=== PATIENT | male | born 1980 | race Caucasian/White ===

== ENCOUNTER 2025-01-30 14:07 | Emergency (ER) | payer SELFPAY ==
--- OUTSIDE RECORDS SUMMARY | 2025-01-30 14:10 | XMS_ITS | Clinical Summary ---
Author Organization [facility] Address [address] [place] [address] Phone Care Team Providers Care Press Cutter Name Role Phone Provider, None Primary Care Provider Unavailabl e Allergies No known active allergies Medications ondansetron (ZOFRAN) 4 MG Tablet Take 1 Tab by mouth every 8 hours as needed for Nausea - 1st line. 10 Tab 0 Active Additional Information Patient not taking.Reported on 03/27/2024 Active Problems No known active problems Immunizations Immunization Administration Dates Next Due TDAP Vaccine 02/15/2017 Social History Tobacco Use Types Packs/Day Years Used Date Smoking Tobacco: Every Day Cigarettes Smokeless Tobacco: Never Tobacco Cessation:Ready to Q uit: Not Asked; Counseling Given: Not Answered Alcohol Use Standard Drinks/Week Comments Yes 0 (1 standard drink = 0.6 oz pur e alcohol) 5 beers a night Sex and Gender Information Value Date Recorded Sex Assigned at Not on file Legal Sex Male 11:36 AM [employer] Gender Identity Not on file Sexual Orientation Not on file Last Filed Vital Signs Vital Sign Reading Time Taken Comments Blood Pressure 120/78 03/27/2024 11:40 AM CDT Pulse 97 03/27/2024 11:40 AM CDT Temperature 36.6 C (97.9 F) 03/27/2024 11:40 AM CDT Respiratory Rate 14 03/27/2024 11:40 AM CDT Oxygen Saturation 98% 03/27/2024 11:40 AM CDT Inhaled Oxygen Concentration - - Weight 77.1 kg (170 lb) 12/10/2021 10:17 PM CDT Height 175.3 cm (5' 9) 12/10/2021 10:17 PM CDT Body Mass Index 25.1 12/10/2021 10:17 PM CDT Plan of Treatment Health Maintenance Due Date Last Done Comments Hepatitis C Virus (HCV) Screening 1979 Hepatitis B Immunization (1 of 3 - 19+ 3-dose series) 1998 Pneumococcal Immunization Co mbined (1 of 2 - PCV) 1998 Human Papillomavirus (HPV) Immunization (1 - 3-dose SCDM series) 2006 SARS-COV-2 Immunization ( - season) 2024 Cologuard 02/23/2024 Colonoscopy 02/23/2024 Colorectal Cancer Screening 02/23/2024 Immunochemical Fecal Occult Blood 02/23/2024 Influenza Immunization (#1) 2025 Td Immunization Every 10 Yea rs (Adults With 1 Tdap) 02/15/2027 02/15/2017 Respiratory Syncytial Virus (RSV) Immunization (Adult) (1 - 1-dose 75+ series) 2054 DTaP/Tdap/Td Immunization Discontinued 02/15/2017 TdaP Immunization Discontinued 02/15/2017 Meningococcal Immunization (ACWY) Aged Out No longer eligible based on patient's age to complete this topic Rotavirus Immunization Aged Out No lo nger eligible based on patient's age to complete this topic Insurance [facility] Care Teams Press Cutter Relationship Specialty Start Date End Date Provider, None [place] PCP - General 07/21/19
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
--- OUTSIDE RECORDS SUMMARY | 2025-01-30 14:13 | XMS_ITS | Continuity of Care Document ---
Author Name Taras Schulz Address [address] [place], [place] [id number] [place] [address] Organization Unknown Address [address] [place] [address] Medications No known medications Problems No known problems
[2025-01-30 14:18] VITALS: BP 141/91; PULSE 98; RESP 16; TEMP 36.6; O2SAT 100
--- NOTE | 2025-01-30 16:29 | ED_ITS ---
HPI - Dental/Oral General Chief complaint: Dental/Oral Stated complaint: tooth causing facial swelling Time Seen by Provider: 01/30/25 14:27 Source: patient and RN notes reviewed Mode of arrival: ambulatory Limitations: no limitations History of Present Illness HPI Narrative: Patient presents today complaining of right upper dental pain and upper jaw swelling. States the filling fell out of 1 of his teeth years ago and he occasionally has pain, but it has been worsening. Cheek swelling started today. Currently rates his pain 5/10 and has been using Excedrin with mild relief. He has also been using some temporary filling material. Denies fever, shortness of breath, difficulty swallowing or opening his mouth. Related Data Allergies Allergy/AdvReac Type Severity Reaction Status Date / Time No Known Allergies Allergy Verified 01/30/25 14:18 PMFSH Comments At time of signature, I have reviewed and agree with nursing past medical, surgical, social and family history unless otherwise noted. Please see nursing chart for further information. There is no relevant family history pertinent to the presenting complaint Exam Narrative: GENERAL: Well-appearing, well-nourished, and in no acute distress. HEAD: Normocephalic, atraumatic. EYES: EOMI. No redness or drainage. Conjunctivae normal. ENT: Mucous membranes pink and moist. Nares clear. No rhinorrhea. Throat normal. Uvula midline. Missing filling in tooth 3. Center is black in color. No obvious periapical abscess. No trismus. No sublingual tenderness. Tenderness to the right upper jaw line with mild to moderate swelling. NECK: Normal AROM. Supple. CHEST: No respiratory distress. EXTREMITIES: Normal range of motion. No edema. SKIN: Warm, dry, no rash. Capillary refill normal. Normal skin turgor. NEURO: No focal deficits. Alert and oriented x3. Gait steady. PSYCH: Normal affect. No signs of depression or anxiety. Course Course Level of Care: Express Care Visit Vital Signs Vital signs: Vital Signs Temperature 98 F 01/30/25 14:18 Pulse Rate 98 01/30/25 14:18 Respiratory Rate 16 01/30/25 14:18 Blood Pressure 141/91 H 01/30/25 14:18 Pulse Oximetry 100 01/30/25 14:18 Oxygen Delivery Room Air 01/30/25 14:18 Temperature 98 F 01/30/25 14:18 Pulse Rate 98 01/30/25 14:18 Respiratory Rate 16 01/30/25 14:18 Blood Pressure 141/91 H 01/30/25 14:18 Pulse Oximetry 100 01/30/25 14:18 Oxygen Delivery Room Air 01/30/25 14:18 Reviewed MDM - Dental/Oral MDM Narrative Medical decision making narrative: 44-year-old male patient presents complaining of intermittent right upper tooth pain and jaw swelling. He does not currently have a dentist. Exam shows moderate swelling of the right upper jaw with missing filling. Patient will be placed on a course of Augmentin and prednisone with recommendation to follow-up with a dentist as soon as possible. Vital signs stable with mildly elevated blood pressure. Strict ED precautions given. Differential Diagnosis Differential diagnosis: Likely gingival abscess, dental caries, toothache, dental abscess and fracture of tooth Critical Care Time Critical Care Time Critical Care Time: No Discharge Plan Discharge Clinical Impression: Dental abscess Patient Disposition: Home Condition: Stable Instructions: Antibiotic Form, Dental Abscess (ED) Additional Instructions: Please take the Augmentin and prednisone as directed. You may want to start an anti-inflammatory at home such as Aleve or ibuprofen to help with the pain and swelling. Follow-up with a dentist as soon as possible for further evaluation and treatment. As discussed, if you develop a fever greater than 103, shortness of breath, difficulty swallowing, or difficulty opening your mouth, please go to the ER immediately for further evaluation and treatment. Your blood pressure was elevated above 120/80 today at Urgent Care. This puts you above the threshold for follow up. Please schedule a followup visit with your personal physician as soon as possible, for further evaluation and treatment. Even blood pressure exceeding 120/80 may indicate pre-hypertension. Patient Language: Pashto Prescriptions: New prednisone 20 mg tablet 40 mg PO DAILY 5 Days Qty: 10 0RF amoxicillin-pot clavulanate 875-125 mg tablet 1 tablet PO Q12H 10 Days Qty: 20 0RF Follow-up/Referrals: PHYSICIAN,SENIOR NET SOFTWARE ENGINEER [Primary Care Provider] - Time of Disposition: 14:35
== END 2025-01-30 14:41 | disposition home or self-care (01) ==
PROVIDERS: Emergency Provider Nurse Practitioner
DX: K04.7 Periapical abscess without sinus (principal)
CPT/HCPCS: 99203; G0463